=== PATIENT | female | born 1990 | race African-American/Black ===

== ENCOUNTER 2020-03-09 15:05 | Emergency (ER) | payer MEDICAID, SELFPAY | END 2020-03-09 15:38 | disposition home or self-care (01) | LOC: NAV ERS 15:05 | DX: S40.011A Contusion of right shoulder, initial encounter (principal); S00.81XA Abrasion of other part of head, initial encounter; S00.83XA Contusion of other part of head, initial encounter; G40.909 Epilepsy, unspecified, not intractable, without status epilepticus; Z79.899 Other long term (current) drug therapy; W19.XXXA Unspecified fall, initial encounter | CPT/HCPCS: 99283 ==